=== PATIENT | female | born 1985 | race Caucasian/White ===

== ENCOUNTER 2017-04-15 14:51 | Emergency (ER) | payer MEDICAID ==
[~2017-04-15] VITALS: Ht 167.6 cm; Wt 79.7 kg
[~2017-04-15 14:51] MED LIST: HYDR-3240 PO; IBUP-1222 PO; OXYC-302 PO; PREN1TAB60 PO
[2017-04-15] MEDS ORDERED: KETOROLAC 30 MG/1 ML ONE (16:45)
[2017-04-15] MEDS ORDERED: METHOCARBAMOL 750 MG TABLET ONE (16:45)
[2017-04-15 16:53] VITALS: BP 124/84
[2017-04-15] MEDS ORDERED: METHOCARBAMOL 750 MG TABLET PO ONE (17:00)
[2017-04-15] MEDS ORDERED: KETOROLAC 30 MG/1 ML IM ONE (17:00)
== END 2017-04-15 16:04 | disposition home or self-care (01) ==
LOC: ED 15:58
DX: S39.012A Strain of muscle, fascia and tendon of lower back, initial encounter (principal); X58.XXXA Exposure to other specified factors, initial encounter; Y93.89 Activity, other specified; Y99.9 Unspecified external cause status; Y92.89 Other specified places as the place of occurrence of the external cause
CPT/HCPCS: 96372; 99283; J1885

== ENCOUNTER 2017-08-19 17:23 | Emergency (ER) | payer MEDICAID ==
[~2017-08-19] VITALS: Ht 170.2 cm; Wt 84.5 kg
[2017-08-19 18:04] VITALS: BP 133/84
[2017-08-19] MEDS ORDERED: DIAZEPAM 5 MG TABLET PO ONE (18:30)
[2017-08-19] MEDS ORDERED: KETOROLAC 30 MG/1 ML IM ONE (18:30)
[2017-08-19] MEDS ORDERED: DIAZEPAM 5 MG TABLET ONE (18:34)
[2017-08-19] MEDS ORDERED: KETOROLAC 30 MG/1 ML ONE (18:34)
== END 2017-08-19 19:34 | disposition home or self-care (01) ==
LOC: ED 19:10
DX: M54.5 Low back pain (principal); F17.200 Nicotine dependence, unspecified, uncomplicated
CPT/HCPCS: 96372; 99283; J1885

== ENCOUNTER 2017-10-05 10:29 | Emergency (ER) | payer MEDICAID ==
[~2017-10-05] VITALS: Ht 170.2 cm; Wt 82.0 kg
[2017-10-05 11:01] VITALS: BP 136/79
[2017-10-05 11:43] LABS: MICROSCOPIC INDICATED
== END 2017-10-05 14:15 | disposition left against medical advice (07) ==
LOC: ED 13:20
DX: R10.9 Unspecified abdominal pain (principal); Z53.21 Procedure and treatment not carried out due to patient leaving prior to being seen by health care provider
CPT/HCPCS: 81001

== ENCOUNTER 2018-08-03 12:30 | Emergency (ER) | payer MEDICAID ==
[~2018-08-03] VITALS: Ht 170.2 cm; Wt 72.2 kg
[2018-08-03 12:36] VITALS: BP 134/80
[2018-08-03] MEDS ORDERED: GABA-827 PO (12:56)
[2018-08-03] MEDS ORDERED: DIAZEPAM 5 MG TABLET ONE (12:58)
[2018-08-03] MEDS ORDERED: KETOROLAC 30 MG/1 ML ONE (12:58)
[2018-08-03] MEDS ORDERED: KETOROLAC 30 MG/1 ML IM ONE (13:00)
[2018-08-03] MEDS ORDERED: DIAZEPAM 5 MG TABLET PO ONE (13:00)
== END 2018-08-03 13:17 | disposition home or self-care (01) ==
LOC: ED 12:59
DX: S39.012A Strain of muscle, fascia and tendon of lower back, initial encounter (principal); F17.200 Nicotine dependence, unspecified, uncomplicated; X58.XXXA Exposure to other specified factors, initial encounter; Y93.89 Activity, other specified; Y92.89 Other specified places as the place of occurrence of the external cause; Y99.8 Other external cause status
CPT/HCPCS: 96372; 99283; J1885

== ENCOUNTER 2020-02-18 23:50 | Emergency (ER) | payer MEDICAID ==
[~2020-02-18] VITALS: Ht 167.6 cm; Wt 84.7 kg
[~2020-02-18 23:50] MED LIST changes: +GABA-827 PO
[2020-02-19] MEDS ORDERED: IBUPROFEN 800 MG TABLET ONE (00:14)
--- NOTE | 2020-02-19 00:21 | NUR ---
Pt medicated per OCT. Xray completed at bedside. Call light in reach.
[2020-02-19] MEDS ORDERED: LIDOCAINE 1%, 10ML INFIL ONE (00:30)
[2020-02-19] MEDS ORDERED: IBUPROFEN 800 MG TABLET PO ONE (00:30)
[2020-02-19] MEDS ORDERED: HYDROcodone/APAP 5/325 TABLET PO ONE (00:30)
[2020-02-19] MEDS ORDERED: CEPHALEXIN 500 MG CAPSULE ONE (00:46)
[2020-02-19] MEDS ORDERED: LIDOCAINE-MPF 1%, 5ML ONE (00:46)
[2020-02-19] MEDS ORDERED: HYDROcodone/APAP 5/325 TABLET ONE (00:47)
[2020-02-19] MEDS ORDERED: DIPH,PERTUSS(ACELL),TET VAC/PF 0.5 ML IM-VACC ONE ×2 (00:47→01:00)
--- NOTE | 2020-02-19 00:54 | NUR ---
Pt medicated per OCT for pain. Venessa at bedside for lido administration.
[2020-02-19] MEDS ORDERED: CEPHALEXIN 500 MG CAPSULE PO ONE (01:00)
[2020-02-19 01:08] LABS: BASOPHILS # (AUTO) 0.02 x10^3/uL (0-0.1); BASOPHILS % (AUTO) 0 % (0-1); EOSINOPHILS # (AUTO) 0.28 x10^3/uL (0-0.4); EOSINOPHILS % (AUTO) 2 % (1-7); LYMPHOCYTES # (AUTO) 2.41 x10^3/uL (1-3.4); LYMPHOCYTES % (AUTO) 17 % (22-44); MD NO; MEAN CORPUSCULAR HEMOGLOBIN 31.2 pg (27.0-34.8); MEAN CORPUSCULAR HGB CONC 33.8 g/dL (32.4-35.8); MEAN CORPUSCULAR VOLUME 92.1 fL (80-100); MEAN PLATELET VOLUME 9.1 fL (7.4-10.4); MONOCYTES # (AUTO) 0.73 x10^3/uL (0.2-0.8); MONOCYTES % (AUTO) 5 % (2-9); NEUTROPHILS # (AUTO) 10.77 x10^3/uL (1.8-6.8); NEUTROPHILS % (AUTO) 76 % (42-75); PLATELET COUNT 273 x10^3/uL (130-400); RED BLOOD COUNT 4.42 x10^6/uL (3.82-5.3); RED CELL DISTRIBUTION WIDTH 12.5 % (9.6-15.2)
[2020-02-19 01:16] LABS: ALBUMIN 3.4 g/dL (3.4-5.0); ANION GAP 3 mmol/L (5-15); CALCIUM 9.1 mg/dL (8.5-10.1); CHLORIDE 109 mmol/L (98-107); CREATININE 0.84 mg/dL (0.55-1.02)
--- NOTE | 2020-02-19 01:25 | NUR ---
Venessa at bedside for I&D.
[2020-02-19] MEDS ORDERED: LIDOCAINE-MPF 2% ,5ML ONE (01:29)
[2020-02-19 02:16] VITALS: BP 126/83
== END 2020-02-19 02:20 | disposition home or self-care (01) ==
LOC: ED 02-19 01:50
DX: S60.022A Contusion of left index finger without damage to nail, initial encounter (principal); L03.012 Cellulitis of left finger; L03.114 Cellulitis of left upper limb; W22.8XXA Striking against or struck by other objects, initial encounter; Y93.89 Activity, other specified; Y92.098 Other place in other non-institutional residence as the place of occurrence of the external cause; Y99.8 Other external cause status
CPT/HCPCS: 10060; 36415; 80048; 82040; 85025; 90471; 90715; 99284